=== PATIENT | male | born 1975 | race Caucasian/White ===

== ENCOUNTER 2016-05-28 08:05 | Inpatient (IN) | payer MEDICAID, MEDICARE, OTHER ==
[~2016-05-28] VITALS: Ht 190.5 cm; Wt 101.6 kg
[~2016-05-28 08:05] MED LIST: ASPIRIN81 M1 PO; ATIVAN1 MG PO; AUGMENTIN 875 M1 TAB PO; AUGMENTIN 875/11 TAB GT; CLEOCIN HCL300 MG PO; COLACE100 M1 PO; GLUCOPHAGE500 MG PO; HUMALOG100 UNITS/ SUBQ; HYDROCODONE BIT1 T55 PO; KEFLEX250 MG PO; LANTUS SOLOS100 U/ML SUBQ; LASIX20 MG PO; LEVEMIR100 U/M1 SC; LIPITOR10 MG PO; LIPITOR20 MG PO; LORAZEPAM1 M1 PO; LOTENSIN5 MG PO; METFORMIN1000 MG; NEURONTIN300 MG PO; NORCO 5/325 MG1 TAB PO; NOVOLOG100 U/ML SUBQ; PROAIR HFA0.09 MG/Ac IH; PROZAC10 M1; PROZAC20 MG PO; SMZ TMP DS PO
[2016-05-28 08:44] VITALS: BP 146/68
[2016-05-28] MEDS ORDERED: PREDNISONE20 MG PO (08:59)
[2016-05-28] MEDS ORDERED: LIPITOR10 MG PO (08:59)
[2016-05-28] MEDS ORDERED: VENTOLIN H0.09 MG/Ac IH (08:59)
[2016-05-28] MEDS ORDERED: GLUCOPHAGE500 MG PO (08:59)
[2016-05-28] MEDS ORDERED: PROZAC10 MG PO (08:59)
[2016-05-28] MEDS ORDERED: AMOXICILLIN500 MG PO (08:59)
[2016-05-28] MEDS ORDERED: ULTRAM50 MG PO (08:59)
[2016-05-28] MEDS ORDERED: ATIVAN1 MG PO (08:59)
[2016-05-28] MEDS ORDERED: TOPCARE IBUPRO200 MG PO (08:59)
[2016-05-28] MEDS ORDERED: NAPROXEN250 M1 PO (08:59)
--- NOTE | 2016-05-28 09:00 | NUR ---
PT TAKEN TO BED 4
--- NOTE | 2016-05-28 09:02 | NUR ---
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 WAS SEEN AT [facility] ER, SYMPTOMS UNRELIEVED BY ABX AND PAIN MEDICATION. ALSO C/O GENERALIZED RASH. Hx: DM, ASTHMA, HEART MURMUR, ANXIETY/DEPRESSION. PT DENIES N/V/D; SKIN IS PINK/WARM/DRY; AAOX4 WITH EVEN AND STEADY GAIT; LUNGS CLEAR BL; HR EVEN AND REGULAR; PT DENIES ANY FEVER, CP, SOB, OR COUGH AT THIS TIME; PATIENT STATES PAIN OF 10/10 AT THIS TIME; VSS; PATIENT POSITIONED FOR COMFORT; HOB ELEVATED; BEDRAILS UP X2; BED DOWN. ER MD MADE AWARE OF PT STATUS.
--- NOTE | 2016-05-28 09:03 | NUR ---
DR PHELAN EVALUATING AT BEDSIDE
[2016-05-28] MEDS ORDERED: BACTRIM 400 MG-1 TAB PO (09:04)
[2016-05-28] MEDS ORDERED: AMPICILLIN/SULBACTAM 1.5 GM in NACL 0.9% 50 ML IV ONE (09:10)
[2016-05-28] MEDS ORDERED: NACL 0.9% 1,000 ML IV ONE ×2 (09:10→10:10)
[2016-05-28] MEDS ORDERED: AMPICILLIN/SULBACTAM 1.5 GM VIAL ONE (09:17)
[2016-05-28] MEDS ORDERED: INSULIN HUMAN REGULAR 100 UNITS/ML 10 ML VIAL IVP ONE (10:10)
--- NOTE | 2016-05-28 10:55 | NUR ---
GAVE REPORT TO CHRISTIAN NELSON . PT ADMITTED TO TELE 106 B
--- NOTE | 2016-05-28 11:09 | NUR ---
Patient will be admitted to care of DR. MENDOZA. Admited to TELEMETRY. Will go to room 106B. Belongings list completed. Report to CHRISTIAN NELSON.
--- NOTE | 2016-05-28 11:20 | NUR ---
RECEIVED PT FROM ER NURSE, JILL, NO S/S OF DISTRESS, VS STABLE. WITH IV ON LEFT HAND 20G PATENT AND INTACT. WITH RIGHT UPPER ARM CELLULITIS AND OPEN WOUND ON RIGHT GILBERT. DISCUSSED PLAN OF CARE, PT VERBALIZED UNDERSTANDING. CALL LIGHT WIHTIN REACH, WILL CONTINUE TO MONITOR.
[2016-05-28] MEDS: SACCHAROMYCES 250 MG CAP PO SCH ×2 (12:20→20:49)
[2016-05-28] MEDS: NACL 0.9% 1,000 ML IV SCH ×2 (12:25→19:51)
[2016-05-28] MEDS ORDERED: ALBUTEROL HFA MDI 90 MCG/ACTUATION 8 GM INH PRN (12:30)
[2016-05-28] MEDS ORDERED: traMADol 50 MG TAB PO PRN (12:30)
[2016-05-28] MEDS ORDERED: LORazepam 1 MG TAB PO PRN (12:30)
[2016-05-28] MEDS ORDERED: ALBUTEROL 0.083% 2.5 MG/3 ML NEBU INH PRN (12:40)
[2016-05-28] MEDS ORDERED: IBUPROFEN 800 MG TAB PO PRN (12:54)
--- NOTE | 2016-05-28 13:00 | NUR ---
LUNCH SERVED, PT HAS GOOD APPETITE. NO S/S OF DISTRESS, ALL NEEDS MET AT THIS TIME, CALL LIGHT WITHINR EACH, WILL CONTINUE TO MONITOR.
[2016-05-28] MEDS ORDERED: SACCHAROMYCES 250 MG CAP PO SCH (13:04)
[2016-05-28] MEDS: GABAPENTIN 300 MG CAP PO SCH ×2 (13:24→20:50)
[2016-05-28] MEDS: HYDROcodone/APAP 5/325 MG 1 TAB TAB PO PRN ×2 (13:24→19:47)
[2016-05-28 16:00] VITALS: BP 122/80
--- NOTE | 2016-05-28 16:00 | NUR ---
PT ASLEEP BUT EASILY AWAKEN, VS IS STABLE. CALL LIGHT WITHIN REACH, WILL CONTINUE TO MONITOR.
[2016-05-28] MEDS: BLOOD GLUCOSE MONITORING 1 DEV DEV FS SCH ×2 (16:51→21:00)
[2016-05-28] MEDS: INSULIN ASPART SLIDING SCALE 100 UNITS/ML VIAL SUBQ PRN ×2 (16:54→21:01)
[2016-05-28] MEDS: metFORMIN 500 MG TAB PO SCH (17:15)
[2016-05-28] MEDS: AMPICILLIN/SULBACTAM 1.5 GM in NACL 0.9% 50 ML IV SCH (17:15)
[2016-05-28] MEDS ORDERED: ACETAMINOPHEN 325 MG TAB PO PRN (17:55)
[2016-05-28] MEDS ORDERED: DOCUSATE SODIUM 100 MG GELCAP PO PRN (17:55)
[2016-05-28] MEDS ORDERED: ONDANSETRON 4 MG/2 ML VIAL IVP PRN (17:55)
[2016-05-28] MEDS ORDERED: MAG SULF 2000 MG/WATER PREMIX 50 ML IV SCH (18:30)
--- NOTE | 2016-05-28 19:28 | NUR ---
ENDORSED PT TO CHRISTIAN AU FOR CONTINUITY OF CARE. PT IS STABLE AT THIS TIME.
--- NOTE | 2016-05-28 19:30 | NUR ---
RECEIVED REPORT FROM CEE GONZALES AT BEDSIDE. PT IS ALERT AWAKE ORIENTED X4. INITIAL ASSESSMENT DONE. NO S/S OF RESPIRATORY DISTRESS OR SOB NOTED. C/O RIGHT ARM PAIN SCALING 6/10. WILL GIVE PRN MEDICATION ORDERED. PLAN OF CARE REVIEWED TO PT AND VERBALIZED UNDERSTANDING. CALL LIGHT WITHIN REACH. WILL CONTINUE TO MONITOR.
[2016-05-28 20:00] VITALS: BP 126/82
[2016-05-28] MEDS: ATORVASTATIN 20 MG TAB PO SCH (20:49)
[2016-05-28] MEDS: INSULIN DETEMIR 100 UNITS/ML 10 ML VIAL SUBQ SCH (23:09)
[2016-05-29] VITALS: BP 119/79
--- NOTE | 2016-05-29 00:15 | NUR ---
PT IS SLEEPING RIGHT NOW BUT EASILY AROUSABLE. NO S/S OF ANY DISCOMFORT AT THIS TIME. ALL NEEDS ARE ATTENDED. CALL LIGHT WITHIN REACH. WILL CONTINUE TO MONITOR.
[2016-05-29] MEDS: HYDROcodone/APAP 5/325 MG 1 TAB TAB PO PRN ×3 (01:31→20:07)
[2016-05-29] MEDS: AMPICILLIN/SULBACTAM 1.5 GM in NACL 0.9% 50 ML IV SCH ×3 (03:19→17:23)
[2016-05-29] MEDS: NACL 0.9% 1,000 ML IV SCH ×4 (03:19→19:49)
[2016-05-29 04:00] VITALS: BP 115/78
[2016-05-29] MEDS: GABAPENTIN 300 MG CAP PO SCH ×3 (04:12→20:07)
--- NOTE | 2016-05-29 05:15 | NUR ---
AM CARE RENDERED. BED LINEN CHANGED. INSTRUCTED PT TO REPOSITION. KEPT CLEAN AND DRY. CALL LIGHT WITHIN REACH. WILL CONTINUE TO MONITOR.
[2016-05-29] MEDS: BLOOD GLUCOSE MONITORING 1 DEV DEV FS SCH ×4 (06:33→20:42)
[2016-05-29] MEDS: INSULIN ASPART SLIDING SCALE 100 UNITS/ML VIAL SUBQ PRN ×4 (06:35→20:09)
--- NOTE | 2016-05-29 07:19 | NUR ---
PATIENT HAS BEEN SCREENED AND CATEGORIZED HIGH NUTRITION RISK. PATIENT WILL BE SEEN WITHIN 1-2 DAYS OF ADMISSION. 05/29/16-05/30/16 LILIA CLEMONS MS, RDN
--- NOTE | 2016-05-29 07:19 | NUR ---
PT HAS NO S/S OF ANY DISCOMFORT. PLAN OF CARE ENDORSED TO COLEMAN GONZALES AT BEDSIDE FOR CONTINUITY OF CARE. Addendum: 05/29/16 at 0720 by Yonathan Metzger RN ENDORSED TO PANTERA RIOJAS RN
--- NOTE | 2016-05-29 07:30 | NUR ---
RECEIVED ON BED AWAKE. AAOX4. NO SOB NOTED. NO C/O PAIN AT THIS TIME. IV TO LEFT HAND PATENT AND INTACT. CHEST CLEAR. ABDOMEN SOFT, BOWEL SOUNDS PRESENT. RIGHT HAND CELLULITIS NOTED, CLOSED WOUND, NO DRAINAGE NOTED, LEFT OPEN TO AIR. INSTRUCTED TO ELEVATE RIGHT HAND WITH PILLOW. INSTRUCTED PT TO CALL FOR ASSISTANCE, CALL LIGHT WITHIN REACH. PT VERBALIZED UNDERSTANDING.
[2016-05-29 08:00] VITALS: BP 125/77
[2016-05-29] MEDS: metFORMIN 500 MG TAB PO SCH ×3 (08:59→17:22)
[2016-05-29] MEDS ORDERED: predniSONE 20 MG TAB PO SCH (09:00)
[2016-05-29] MEDS: predniSONE 40 MG, predniSONE 10 MG PO SCH (09:05)
[2016-05-29] MEDS: FUROSEMIDE 20 MG TAB PO SCH (09:06)
[2016-05-29] MEDS: FLUoxetine 20 MG CAP PO SCH (09:06)
[2016-05-29] MEDS: SACCHAROMYCES 250 MG CAP PO SCH ×2 (09:07→20:07)
[2016-05-29] MEDS: INSULIN DETEMIR 100 UNITS/ML 10 ML VIAL SUBQ SCH (09:09)
[2016-05-29] MEDS: MORPHINE SULFATE 2 MG/ML SYR IVP PRN ×2 (09:10→17:25)
--- NOTE | 2016-05-29 09:18 | NUR ---
05/29/2016 RD INITIAL ASSESSMENT COMPLETED PLEASE REFER TO NUTRITION ASSESSMENT UNDER CARE ACTIVITY FOR ESTIMATED NUTRITIONAL NEEDS. RD RECOMMENDATIONS: 1. CONTINUE ON CCHO 60 GM DIET MEDICALLY APPROPRIATE AND TOLERATED BY PT. PT REPORTS IMPROVED PO INTAKES SINCE ADMISSION. 2. MONSEN PROVIDED DM DIET EDUCATION TO PT, LEFT HANDOUTS WITH PT. 3. RD WILL F/U 3-5 DAYS; MODERATE RISK. LILIA CLEMONS MS, RDN Addendum: 05/29/16 at [address] RD WILL F/U 5-7 DAYS; LOW RISK.
[2016-05-29 12:00] VITALS: BP 149/96
--- NOTE | 2016-05-29 12:20 | NUR ---
PT CONSUMED 100% OF LUNCH SERVED. FOOD TOLERATED WELL.
[2016-05-29 16:00] VITALS: BP 112/75
--- NOTE | 2016-05-29 16:33 | NUR ---
PT SEEN BY DR. MEMBRENO (PSYCH) WITH NEW ORDERS.
--- NOTE | 2016-05-29 18:50 | NUR ---
SPOKE WITH DR. GRIFFIN OVER THE PHONE. MADE AWARE OF THE CONSULT AND STATED TO SEE PT ON TUESDAY.
--- NOTE | 2016-05-29 18:53 | NUR ---
PT AWAKE, WATCHING TV. NO SOB NOTED. NO C/O PAIN AT THIS TIME. WILL ENDORSE TO NEXT SHIFT NURSE FOR CONTINUITY OF CARE.
--- NOTE | 2016-05-29 19:15 | NUR ---
RECEIVED PT AWAKE WATCHING TV, WITH RT ARM PAIN 6/10, WILL MEDICATE PRN, VITAL SIGNS STABLE, NO SOB NOTED, RT ARM DRESSING DRY AND INTACT, ELEVATED WITH PILLOW, IVF INFUSING WELL, POC DISCUSSED, CALL LIGHT WITHIN REACH.
[2016-05-29 20:00] VITALS: BP 111/73
[2016-05-29] MEDS: ATORVASTATIN 20 MG TAB PO SCH (20:07)
--- NOTE | 2016-05-29 20:20 | NUR ---
BLOOD SUGAR CHECKED WITH 302 RESULT, COVERAGE GIVEN, SNACK PROVIDED, DUE PO MEDICATIONS GIVEN WITH EDUCATION AND MEDICATED PRN FOR PAIN WITH NORCO, ALL NEEDS ATTENDED.
[2016-05-29] MEDS ORDERED: GABAPENTIN 100 MG CAP PO SCH (21:00)
[2016-05-30] VITALS: BP 118/76
--- NOTE | 2016-05-30 | NUR ---
ASLEEP, EASILY AROUSABLE, VITAL SIGNS STABLE, DENIES ANY PAIN, RT HAND DRESSING DRY AND INTACT, IVF INFUSING WELL, CONTINUE TO MONITOR CLOSELY.
[2016-05-30] MEDS: NACL 0.9% 1,000 ML IV SCH ×5 (00:10→21:37)
[2016-05-30] MEDS: AMPICILLIN/SULBACTAM 1.5 GM in NACL 0.9% 50 ML IV SCH ×3 (01:26→18:29)
[2016-05-30 04:00] VITALS: BP 123/86
[2016-05-30] MEDS: MORPHINE SULFATE 2 MG/ML SYR IVP PRN ×3 (04:29→18:29)
[2016-05-30] MEDS: GABAPENTIN 300 MG CAP PO SCH ×3 (04:29→20:14)
--- NOTE | 2016-05-30 04:30 | NUR ---
PT REMOVED RT HAND DRESSING, MINIMAL PURULENT DRAINAGE NOTED TO SITE, CLEANSE WITH NS THEN COVERED WITH COMPOSITE DRESSING, MEDICATED PRN FOR PAIN, MONITORED CLOSELY.
--- NOTE | 2016-05-30 06:00 | NUR ---
AM LABS DRAWN, BLOOD SUGAR CHECKED WITH 166 RESULT, COVERAGE GIVEN, RT HAND DRESSING DRY AND INTACT, IVF INFUSING WELL, MONITORED CLOSELY.
[2016-05-30] MEDS: INSULIN ASPART SLIDING SCALE 100 UNITS/ML VIAL SUBQ PRN ×4 (06:02→20:18)
[2016-05-30] MEDS: BLOOD GLUCOSE MONITORING 1 DEV DEV FS SCH ×4 (06:41→21:04)
--- NOTE | 2016-05-30 07:15 | NUR ---
PT SLEEPING, NO SIGNS OF DISTRESS, REPORT GIVEN TO CHRISTIAN LUKE FOR CONTINUITY OF CARE.
--- NOTE | 2016-05-30 07:16 | NUR ---
RECEIVED REPORT FROM FURNACE FEEDER RN. PT AWAKE, A/O X 4, AMBULATORY. NO S/S OF ACUTE CARDIAC/RESPIRATORY DISTRESS OR DISCOMFORT. L HAND 20G INTACT AND PATENT. RUE CELLULITIS DRESSING INTACT. SAFETY MEASURES IN PLACE, CALL LIGHT WITHIN REACH. WILL CONTINUE PLAN OF CARE AND CONTINUE TO MONITOR.
[2016-05-30 08:00] VITALS: BP 131/90
[2016-05-30] MEDS: FLUoxetine 20 MG CAP PO SCH (08:42)
[2016-05-30] MEDS: FUROSEMIDE 20 MG TAB PO SCH (08:42)
[2016-05-30] MEDS: metFORMIN 500 MG TAB PO SCH ×3 (08:42→16:50)
[2016-05-30] MEDS: HYDROcodone/APAP 5/325 MG 1 TAB TAB PO PRN ×2 (08:43→13:56)
[2016-05-30] MEDS: predniSONE 40 MG, predniSONE 10 MG PO SCH (08:43)
[2016-05-30] MEDS: INSULIN DETEMIR 100 UNITS/ML 10 ML VIAL SUBQ SCH (08:45)
[2016-05-30] MEDS: SACCHAROMYCES 250 MG CAP PO SCH ×2 (08:46→20:15)
--- NOTE | 2016-05-30 10:30 | NUR ---
WOUND CARE DONE BY . DRESSING CHANGED. MEDICATED PT WITH MORPHINE. PT TOLERATED WOUND CARE WELL. NO S/S OF DISTRESS. CALL LIGHT WITHIN REACH. WILL CONTINUE TO MONITOR.
[2016-05-30] MEDS ORDERED: LORazepam 2 MG/ML VIAL IVP PRN (11:00)
[2016-05-30] MEDS ORDERED: FLUoxetine 20 MG CAP PO SCH (11:05)
[2016-05-30 12:00] VITALS: BP 143/87
[2016-05-30] MEDS ORDERED: POTASSIUM CHLORIDE 40 MEQ, LIDOCAINE 1% 25 MG in NACL 0.9% 250 ML IV SCH (12:00)
--- NOTE | 2016-05-30 13:17 | NUR ---
PT IS RESTING WITH EYES CLOSED. NO S/S OF ACUTE DISTRESS OR DISCOMFORT. CALL LIGHT WITHIN REACH. WILL CONTINUE TO MONITOR.
--- NOTE | 2016-05-30 15:16 | NUR ---
PT IS SLEEPING. NO S/S OF ACUTE DISTRESS OR DISCOMFORT. CALL LIGHT WITHIN REACH. WILL CONTINUE TO MONITOR.
[2016-05-30 16:00] VITALS: BP 129/73
[2016-05-30] MEDS ORDERED: MAG SULF 2000 MG/WATER PREMIX 50 ML IV SCH (16:00)
--- NOTE | 2016-05-30 17:13 | NUR ---
PT IS SLEEPING. NO S/S OF ACUTE DISTRESS OR DISCOMFORT. CALL LIGHT WITHIN REACH. WILL CONTINUE TO MONITOR.
--- NOTE | 2016-05-30 19:03 | NUR ---
ENDORSED REPORT TO LOCKSMITH CHRISTIAN PAPPAS. PT IS SLEEPING. NO S/S OF ACUTE DISTRESS OR DISCOMFORT. PT IN STABLE CONDITION. CALL LIGHT WITHIN REACH.
--- NOTE | 2016-05-30 19:15 | NUR ---
RECEIVED PT SLEEPING, EASILY AROUSABLE, VITAL SIGNS STABLE, DENIES ANY PAIN, NO SOB NOTED, DRESSING TO RT HAND/WRIST DRY AND INTACT, IVF INFUSING WELL, POC DISCUSSED, CALL LIGHT WITHIN REACH.
[2016-05-30 20:00] VITALS: BP 113/73
[2016-05-30] MEDS: ATORVASTATIN 20 MG TAB PO SCH (20:14)
--- NOTE | 2016-05-30 21:10 | NUR ---
BLOOD SUGAR CHECKED WITH 250 RESULT, COVERAGE GIVEN, SNACK PROVIDED, DUE PO MEDICATION ADMINISTERED, ALL NEEDS ATTENDED.
--- NOTE | 2016-05-30 23:40 | NUR ---
PT SLEEPING, EASILY AROUSABLE, VITAL SIGNS STABLE, DENIES ANY PAIN, IVF INFUSING WELL, RT HAND DRESSING DRY AND INTACT, CONTINUE TO MONITOR CLOSELY.
[2016-05-31] VITALS: BP 110/73
[2016-05-31] MEDS: AMPICILLIN/SULBACTAM 1.5 GM in NACL 0.9% 50 ML IV SCH ×3 (01:10→17:01)
[2016-05-31] MEDS: NACL 0.9% 1,000 ML IV SCH ×3 (01:14→19:31)
[2016-05-31] MEDS: MORPHINE SULFATE 2 MG/ML SYR IVP PRN ×3 (03:18→16:12)
--- NOTE | 2016-05-31 03:37 | NUR ---
PT AMBULATED TO BR, BM WITH LARGE SOFT STOOL, BED LINEN CHANGED, VITAL SIGNS STABLE, MEDICATED PRN FOR PAIN, MONITORED CLOSELY.
[2016-05-31 04:00] VITALS: BP 117/86
[2016-05-31] MEDS: GABAPENTIN 300 MG CAP PO SCH ×3 (04:40→21:08)
[2016-05-31] MEDS: INSULIN ASPART SLIDING SCALE 100 UNITS/ML VIAL SUBQ PRN ×4 (06:13→21:10)
--- NOTE | 2016-05-31 06:15 | NUR ---
BLOOD SUGAR CHECKED WITH 192 RESULT, COVERAGE GIVEN, RT HAND DRESSING DRY AND INTACT, IVF INFUSING WELL, MONITORED CLOSELY.
[2016-05-31] MEDS: BLOOD GLUCOSE MONITORING 1 DEV DEV FS SCH ×4 (07:04→21:04)
--- NOTE | 2016-05-31 07:15 | NUR ---
PT SLEEPING, NO SIGNS OF DISTRESS, REPORT GIVEN TO LESLIE GONZALES FOR CONTINUITY OF CARE.
--- NOTE | 2016-05-31 07:16 | NUR ---
PT RECEIVED FROM CHRISTIAN PAPPAS ASLEEP BUT EASILY AWAKEN. AAOX4, WITH IV ACCESS ON LEFT HAND 20G INFUSING FLUIDS WELL. WITH WOUND DRESSING AT RIGHT HAND DRY AND INTACT. NO COMPLAINTS OF PAIN AT THIS TIME. NO S/S OF RESPIRATORY DISCOMFORT. DISCUSSED PLAN OF CARE, PT VERBALIZED UNDERSTANDING. CALL LIGHT WITHIN REACH, WILL CONTINUE TO MONITOR.
[2016-05-31 08:00] VITALS: BP 116/79
[2016-05-31] MEDS: metFORMIN 500 MG TAB PO SCH ×3 (08:17→16:07)
[2016-05-31] MEDS: SACCHAROMYCES 250 MG CAP PO SCH ×2 (08:17→21:08)
[2016-05-31] MEDS: FLUoxetine 20 MG CAP PO SCH (08:17)
[2016-05-31] MEDS: FUROSEMIDE 20 MG TAB PO SCH (08:17)
[2016-05-31] MEDS: predniSONE 40 MG, predniSONE 10 MG PO SCH (08:17)
[2016-05-31] MEDS: INSULIN DETEMIR 100 UNITS/ML 10 ML VIAL SUBQ SCH (08:24)
--- NOTE | 2016-05-31 08:25 | NUR ---
DUE MEDS GIVEN, PT TOLERATED WELL. ALL NEEDS MET AT THIS TIME. CALL LIGHT WITHIN REACH, WILL CONTINUE TO MONITOR.
--- NOTE | 2016-05-31 08:50 | NUR ---
WOUND CARE EVALUATION NOTES: REASON FOR EVALUATION: RIGHT WRIST CELLULITIS, OPEN WOUND RIGHT CALF COMPLETE SKIN ASSESSMENT DONE ON THIS 41 Y/O MALE PATIENT FROM HOME TO [facility], WITH INITIAL DIAGNOSIS OF RUE CELLULITIS AND UNCONTROLLED DIABETES. PAST MEDICAL HISTORY INCLUDE DM AND HYPERTENSION. ALL ABOVE INFORMATION WAS OBTAINED FROM THE ADMISSION H&P. LABS ARE WBC 9.7, H/H 13.9/42.3, GLUCOSE 190, ALBUMIN 1.9, PT/INR 9.4/1.0 AND PTT 26.5. CURRENT MEDS INCLUDE PREDNISONE, UNASYN, INSULIN, METFORMIN AND IBUPROFEN. PATIENT IS AWAKE, ALERT AND ORIENTED TO PERSON, PLACE AND TIME. SKIN WARM TO TOUCH WNL, TOENAILS WNL, WITH HAIR GROWTH, NO EDEMA AND +2 BILATERAL PEDAL PULSES. URINE AND BOWEL CONTINENT, ABLE TO AMBULATE TO THE RESTROOM CLAIMED. ABLE TO MAKE HIS NEEDS KNOWN. ABLE TO TURN SELF WITH NO ASSISTANCE. INITIAL PLAN OF CARE AND PRESSURE PREVENTIVE MEASURES DISCUSSED, ABLE TO VERBALIZE UNDERSTANDING. INTEGUMENTARY: RIGHT WRIST - CELLULITIS - S/P BEDSIDE I&D 05/30/16 - 100% DUSKY RED. PW DRY WITH SKIN PEELING OFF. DR. STRICKLAND AT BEDSIDE CHANGING THE DRESSING. BLE - MULTIPLE ABRASIONS - 100% BROWN RED SCABS. PATIENT CLAIMED THAT HE HAD BEEN SCRATCHING THE AREA. PW DISCOLORED. RECOMMENDATIONS: -CLEANSE RIGHT WRIST WITH NS AND GAUZE, PAT DRY, PACK WITH 1/4 INCH IODOFORM PACKING, COVER WITH GAUZE AND WRAP WITH MERT Q DAY AND PRN WITH SOILING/DISPLACEMENT. -TURN AND REPOSITION PATIENT Q2H -ASSESS AND MONITOR SKIN CONDITION DURING POSITION CHANGE, PLEASE PAY PARTICULAR ATTENTION TO SACRALCOCCYX, ELBOWS AND HEELS -OFFLOAD BILATERAL HEELS BY PLACING PILLOWS UNDER CALVES AT ALL TIMES, UNLESS OTHERWISE CONTRAINDICATED -KEEP SKIN CLEAN AND DRY AT ALL TIMES. RECOMMENDATIONS DISCUSSED WITH PRIMARY RN AND RESIDENT PHYSICIAN, DR STRICKLAND AND DR. STOCK. WILL FOLLOW UP PATIENT Q 7 DAYS AND PRN. PLEASE CONTACT [facility] FOR ANY CONCERNS, QUESTIONS AND CHANGES IN WOUND CONDITION.
--- NOTE | 2016-05-31 09:05 | NUR ---
DEBRIDEMENT DONE BY DR. STRICKLAND. COVERED WITH DRY DRESSING. PT TOLERATED WELL.
[2016-05-31 12:00] VITALS: BP 130/68
--- NOTE | 2016-05-31 12:01 | NUR ---
SS NOTE: I SPOKE WITH PT BEDSIDE AND PROVIDED HIM WITH OUTPT MENTAL HEALTH RESOURCES.
--- NOTE | 2016-05-31 12:30 | NUR ---
DR GRIFFIN IN THE ROOM WITH THE PT, NO COMPLAINTS AT THIS TIME, ALL NEEDS MET. WILL CONTINUE TO MONITOR.
[2016-05-31] MEDS: HYDROcodone/APAP 5/325 MG 1 TAB TAB PO PRN (13:46)
--- NOTE | 2016-05-31 14:56 | NUR ---
PT AWAKE SITTING ON BED WATCHING TV, NO COMPLAINTS OR DISTRESS AT THIS TIME. CALL LIGHT WITHIN REACH, WILL CONTINUE TO MONITOR.
--- NOTE | 2016-05-31 15:54 | NUR ---
PT COMPLAINS OF NUMBNESS ON RIGHT HAND, DR STOCK INFORMED. ENCOURAGED PT TO ELEVATE HAND, PT VERBALIZED UNDERSTANDING
[2016-05-31] MEDS ORDERED: GABAPENTIN 100 MG CAP PO PRN (15:55)
[2016-05-31 16:00] VITALS: BP 124/84
--- NOTE | 2016-05-31 17:10 | NUR ---
PT AWAKE WATCHING TV, ALL NEEDS MET AT THIS TIME. CALL LIGHT WITHIN REACH, WILL CONTINUE TO MONITOR.
--- NOTE | 2016-05-31 19:28 | NUR ---
ENDORSED PT TO Dung NEWMAN RN FOR CONTINUITY OF CARE IN STABLE CONDITION
--- NOTE | 2016-05-31 19:40 | NUR ---
RECEIVED REPORT FROM DAY NURSELESLIE. PATIENT RESTING IN BED, WATCHING TELEVISION. NO RESPIRATORY DISTRESS, SOB, OR DISCOMFORT. INITIAL ASSESSMENT AND BODY CHECK DONE. PATIENT IS AOX4, WOUND NOTED TO RUE COVERED WITH DRESSING; DRY & INTACT. PATIENT IS S/P I&D (05/31/16) TO RUE. ABRASION NOTED TO RLE. IV ACCESS TO LEFT HAND 20G, PATENT. DISCUSSED PLAN OF CARE, MEDICATION REGIMENT, AND PAIN MANAGEMENT WITH PATIENT. PATIENT VERBALIZED UNDERSTANDING. PLACED PATIENT ON SAFETY PRECAUTIONS. CALL LIGHT LEFT WITHIN REACH, WILL CONTINUE TO MONITOR.
[2016-05-31 20:00] VITALS: BP 105/63
[2016-05-31] MEDS: ATORVASTATIN 20 MG TAB PO SCH (21:08)
--- NOTE | 2016-05-31 22:10 | NUR ---
PATIENT IN BED, SLEEPING. NO RESPIRATORY DISTRESS, SOB, OR DISCOMFORT. CALL LIGHT LEFT WITHIN REACH, WILL CONTINUE TO MONITOR.
[2016-06-01] VITALS: BP 116/75
--- NOTE | 2016-06-01 00:50 | NUR ---
PATIENT ASLEEP. NO RESPIRATORY DISTRESS, SOB, OR DISCOMFORT. CALL LIGHT LEFT WITHIN REACH, WILL CONTINUE TO MONITOR.
[2016-06-01] MEDS: NACL 0.9% 1,000 ML IV SCH ×2 (02:13→09:44)
[2016-06-01] MEDS: AMPICILLIN/SULBACTAM 1.5 GM in NACL 0.9% 50 ML IV SCH ×2 (02:38→10:10)
--- NOTE | 2016-06-01 03:07 | NUR ---
PATIENT SLEEPING. NO RESPIRATORY DISTRESS, SOB, OR DISCOMFORT. CALL LIGHT LEFT WITHIN REACH, WILL CONTINUE TO MONITOR.
[2016-06-01 04:00] VITALS: BP 108/69
[2016-06-01] MEDS: GABAPENTIN 300 MG CAP PO SCH ×2 (06:03→12:43)
--- NOTE | 2016-06-01 06:03 | NUR ---
PATIENT IN BED, ASLEEP. NO RESPIRATORY DISTRESS, SOB, OR DISCOMFORT. CALL LIGHT LEFT WITHIN REACH, WILL CONTINUE TO MONITOR.
[2016-06-01] MEDS: INSULIN ASPART SLIDING SCALE 100 UNITS/ML VIAL SUBQ PRN ×2 (06:28→12:46)
[2016-06-01] MEDS: BLOOD GLUCOSE MONITORING 1 DEV DEV FS SCH ×2 (06:28→11:30)
--- NOTE | 2016-06-01 07:05 | NUR ---
REPORT GIVEN TO DAY NURSELESLIE. PATIENT RESTING IN BED, WATCHING TELEVISION. NO RESPIRATORY DISTRESS, SOB, OR DISCOMFORT. ALL NEEDS ATTENDED TO DURING SHIFT, CALL LIGHT LEFT WITHIN REACH.
--- NOTE | 2016-06-01 07:11 | NUR ---
RECEIVED PT FROM TRENT Kee RN AWAKE WHILE LYING ON BED, AAOX4 WITH IV ON LEFT WRIST 22G INFUSING FLUIDS WELL. WITH RUE CELLULITIS WITH DRESSING DRY AND INTACT. DISCUSSED PLAN OF CARE, PT VERBALIZED UNDERSTANDING. CALL LIGHT WITHIN REACH, WILL CONTINUE TO MONITOR.
[2016-06-01 08:00] VITALS: BP 112/84
[2016-06-01] MEDS: SACCHAROMYCES 250 MG CAP PO SCH (08:18)
[2016-06-01] MEDS: metFORMIN 500 MG TAB PO SCH ×2 (08:18→12:43)
[2016-06-01] MEDS: FLUoxetine 20 MG CAP PO SCH (08:18)
[2016-06-01] MEDS: predniSONE 40 MG, predniSONE 10 MG PO SCH (08:19)
[2016-06-01] MEDS: MORPHINE SULFATE 2 MG/ML SYR IVP PRN (08:19)
[2016-06-01] MEDS: FUROSEMIDE 20 MG TAB PO SCH (08:19)
[2016-06-01] MEDS: INSULIN DETEMIR 100 UNITS/ML 10 ML VIAL SUBQ SCH (08:26)
--- NOTE | 2016-06-01 08:30 | NUR ---
DUE MEDS GIVEN. PT TOLERATED WELL. ALL NEEDS MET AT THIS TIME, CALL LIGHT VINOD WILSON, WILL CONTINUE TO MONITOR.
[2016-06-01] MEDS ORDERED: LEVEMIR100 U/ML SUBQ (11:01)
[2016-06-01] MEDS ORDERED: NOVOLOG100 UNIT/1 SUBQ (11:01)
[2016-06-01] MEDS ORDERED: FLORASTOR 33 MG1 CAP PO (11:01)
[2016-06-01] MEDS ORDERED: AUGMENTIN 500 M1 TAB PO (11:01)
--- NOTE | 2016-06-01 11:02 | NUR ---
FAXED CONCURRENT REVIEW TO [facility] [phone] PHONE [phone] FAXED REVIEW TO [facility] [phone] PHONE [phone]
[2016-06-01 11:12] VITALS: BP 112/84
[2016-06-01] MEDS ORDERED: LANTUS SOLOS100 U/ML SUBQ (11:38)
[2016-06-01] MEDS ORDERED: HUMALOG100 UNITS/ SUBQ (11:40)
[2016-06-01 12:00] VITALS: BP 130/81
[2016-06-01] MEDS ORDERED: GAUZE TP SCH (13:59)
--- NOTE | 2016-06-01 14:27 | NUR ---
DISCHARGE INSTRUCTIONS GIVEN, PT VERBALIZED UNDERSTANDING. PT GIVEN SUPPLIES FOR WOUND CARE. ID WRISTBAND, TELE AND IV ACCESS REMOVED, CATHETER TIP INTACT. NO S/S OF DISTRESS. PT GIVEN HOME MEDS FROM PHARMACY. PT LEFT UNIT AMBULATING IN STABLE CONDITION,
[2016-10-08] MEDS ORDERED: NEURONTIN300 M1 PO (09:09)
[2016-10-08] MEDS ORDERED: ASPIRIN ADULT L81 M1 PO (09:09)
[2016-10-14] MEDS ORDERED: BACTRIM DS 8001 TA1 PO (10:37)
[2016-10-14] MEDS ORDERED: NORCO 5/325 MG1 TAB PO (10:38)
[2016-10-14] MEDS ORDERED: COLACE100 M1 PO (10:39)
== END 2016-06-01 14:00 | disposition home or self-care (01) | DRG 364 ==
LOC: MED 08:05 → MTU 10:43
PROVIDERS: ADMIT Family Medicine; ATTEND Family Medicine
PROC: 0J9G0ZZ Drainage of Right Lower Arm Subcutaneous Tissue and Fascia, Open Approach (ICD-10-PCS; principal; 2016-05-30)
DX: L03.113 Cellulitis of right upper limb (principal); N17.0 Acute kidney failure with tubular necrosis; E43 Unspecified severe protein-calorie malnutrition; E11.42 Type 2 diabetes mellitus with diabetic polyneuropathy; D68.69 Other thrombophilia; F33.3 Major depressive disorder, recurrent, severe with psychotic symptoms; E87.8 Other disorders of electrolyte and fluid balance, not elsewhere classified; E11.65 Type 2 diabetes mellitus with hyperglycemia; E87.1 Hypo-osmolality and hyponatremia; E83.51 Hypocalcemia; E87.6 Hypokalemia; E83.42 Hypomagnesemia; E83.39 Other disorders of phosphorus metabolism; E78.5 Hyperlipidemia, unspecified; F12.10 Cannabis abuse, uncomplicated; F15.10 Other stimulant abuse, uncomplicated; F79 Unspecified intellectual disabilities; I10 Essential (primary) hypertension; G90.9 Disorder of the autonomic nervous system, unspecified; F41.1 Generalized anxiety disorder; F42.4 Excoriation (skin-picking) disorder; J45.909 Unspecified asthma, uncomplicated; L02.413 Cutaneous abscess of right upper limb; Z79.899 Other long term (current) drug therapy; Z88.1 Allergy status to other antibiotic agents; Z68.28 Body mass index [BMI] 28.0-28.9, adult; Z83.3 Family history of diabetes mellitus

== ENCOUNTER 2016-10-08 08:33 | Inpatient (IN) | payer MEDICAID, MEDICARE ==
[~2016-10-08] VITALS: Ht 185.4 cm; Wt 90.3 kg
[~2016-10-08 08:33] MED LIST changes: +ACET-3820 PO; +ALBU-136 IH; +ALBU0.0912 IH; +AMOX-999 PO; -ASPIRIN81 M1 PO; -ATIVAN1 MG PO; +ATOR10TA PO; -AUGMENTIN 875 M1 TAB PO; -AUGMENTIN 875/11 TAB GT; -CLEOCIN HCL300 MG PO; -COLACE100 M1 PO; +FLUO10CA21 PO; +FURO-572 PO; +GABA300C PO; -GLUCOPHAGE500 MG PO; +HUM SUBQ; -HUMALOG100 UNITS/ SUBQ; -HYDROCODONE BIT1 T55 PO; +INSU100S22 SUBQ; -KEFLEX250 MG PO; -LANTUS SOLOS100 U/ML SUBQ; -LASIX20 MG PO; -LEVEMIR100 U/M1 SC; -LIPITOR10 MG PO; -LIPITOR20 MG PO; +LORA-476 PO; -LORAZEPAM1 M1 PO; -LOTENSIN5 MG PO; +METF500T PO; -METFORMIN1000 MG; -NEURONTIN300 MG PO; -NORCO 5/325 MG1 TAB PO; -NOVOLOG100 U/ML SUBQ; +PRED20TA5 PO; -PROAIR HFA0.09 MG/Ac IH; -PROZAC10 M1; -PROZAC20 MG PO; +SACC250C1 PO; -SMZ TMP DS PO; +TRAM50TA94 PO; +[UNRECOGNIZED DRUG - CODE] PO; +[UNRECOGNIZED DRUG - CODE] PO
[2016-10-08 08:40] VITALS: BP 132/95
--- NOTE | 2016-10-08 08:47 | NUR ---
PATIENT AMBULATED TO BED 5 AT THIS TIME.
--- NOTE | 2016-10-08 08:48 | NUR ---
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 ALSO C/O SORE THROAT & CHEST PAIN WHEN COUGHING X 1 MO. HX OF ASTHMA, DM, ANXIETY, BIPOLAR, SCHIZOPHRENIA . DENIES N/V/D. AAOX4 WITH EVEN AND STEADY GAIT; LUNGS CLEAR BL; HR EVEN AND REGULAR; PT DENIES ANY FEVER, CP, SOB, OR COUGH AT THIS TIME; PATIENT STATES PAIN OF 10/10 AT THIS TIME; VSS; PATIENT POSITIONED FOR COMFORT; HOB ELEVATED; BEDRAILS UP X2; BED DOWN. ER MADE AWARE OF PT STATUS. Addendum: 10/08/16 at 0954 by [facility] ABRASION
--- NOTE | 2016-10-08 09:00 | NUR ---
ER DR HARMON EVALUATING PT AT BEDSIDE.
[2016-10-08] MEDS ORDERED: NACL 0.9% 500 ML IV SCH (09:02)
[2016-10-08] MEDS ORDERED: ASPIRIN 81 MG TAB.CHEW PO ONE (09:05)
[2016-10-08] MEDS ORDERED: AMPICILLIN/SULBACTAM 3 GM in NACL 0.9% MINI-BAG PLUS 100 ML IV ONE (09:05)
[2016-10-08] MEDS ORDERED: GABA300C1 PO (09:09)
[2016-10-08] MEDS ORDERED: ASPI81CT27 PO (09:09)
[2016-10-08] MEDS ORDERED: DOCUSATE SODIUM 100 MG GELCAP PO PRN (09:10)
[2016-10-08] MEDS ORDERED: ONDANSETRON 4 MG/2 ML VIAL IM/IVP PRN (09:10)
[2016-10-08] MEDS ORDERED: ACETAMINOPHEN 325 MG TAB PO PRN (09:10)
[2016-10-08] MEDS ORDERED: AMPICILLIN/SULBACTAM 3 GM VIAL ONE (09:20)
[2016-10-08] MEDS ORDERED: PIPERACILLIN/TAZOBACTAM 3.375 GM in DEXTROSE 5% 50 ML IV ONE (09:20)
--- NOTE | 2016-10-08 09:25 | NUR ---
LAB AT BEDSIDE
[2016-10-08] MEDS ORDERED: PIPER/TAZO 3.375GM/D5W PREMIX 50 ML IV SCH ×2 (09:35→12:00)
--- NOTE | 2016-10-08 09:47 | NUR ---
EKG AT BEDSIDE
[2016-10-08 09:56] LABS: BASOPHILS # (AUTO) 0.1 K/uL (0.00-0.22); BASOPHILS % (AUTO) 1.7 % (0.0-2.0); EOSINOPHILS # (AUTO) 0.1 K/uL (0-0.4); EOSINOPHILS % (AUTO) 1.8 % (0.0-4.0); HEMATOCRIT 42.2 % (36-52); HEMOGLOBIN 13.9 g/dL (12.0-18.0); LYMPHOCYTES # (AUTO) 1.9 K/uL (2.0-11.5); LYMPHOCYTES % (AUTO) 27.3 % (20.5-51.1); MEAN CORPUSCULAR HEMOGLOBIN 27 pg (27-31); MEAN CORPUSCULAR HGB CONC 33 g/dL (33-37); MEAN CORPUSCULAR VOLUME 81 fL (80-94); MONOCYTES # (AUTO) 0.7 K/uL (0.8-1.0); MONOCYTES % (AUTO) 10.8 % (1.7-9.3); NEUTROPHILS # (AUTO) 4.1 K/uL (1.8-7.7); NEUTROPHILS % (AUTO) 58.4 % (42.2-75.2); PLATELET COUNT (AUTO) 206 K/uL (140-450); RED BLOOD CELL COUNT(AUTO) 5.19 MIL/uL (4.20-6.10); RED CELL DISTRIBUTION WIDTH 12.5 % (11.6-13.7); WHITE BLOOD COUNT (AUTO) 6.9 K/uL (4.8-10.8)
[2016-10-08 10:07] LABS: C-REACTIVE PROTEIN QUANT 2.6 mg/dL (0.0-0.9)
--- NOTE | 2016-10-08 10:07 | NUR ---
GAVE REPORT TO CHRISTIAN ROONEY
[2016-10-08 10:09] LABS: ALBUMIN 2.8 g/dL (3.4-5.0); ANION GAP 13.8 (8-16); CALCIUM 8.5 mg/dL (8.5-10.1); CARBON DIOXIDE 26.5 mmol/L (21-32); CREATININE 0.9 mg/dL (0.6-1.3); POTASSIUM 4.3 mmol/L (3.5-5.1); TOTAL BILIRUBIN 0.3 mg/dL (0.0-1.0); TOTAL PROTEIN, SERUM 7.5 g/dL (6.4-8.2)
--- NOTE | 2016-10-08 10:10 | NUR ---
PULSE OX 100%. NO O2 CANULAR GIVEN. Addendum: 10/08/16 at 1011 by [email or web address] Amendment undone in ED - 10/08/16 at 1012 by [email or web address] UA COLLECTION SENT TO LAB
--- NOTE | 2016-10-08 10:10 | NUR ---
WOUND C/S L BIG TOE. TOOK PICTURE WOUND AT L BIG TOE, R ARM.
--- NOTE | 2016-10-08 10:11 | NUR ---
Patient will be admitted to care of [facility]. Admited to TELE. Will go to room 106B. Belongings list completed. Report to CHRISTIAN ROONEY.
[2016-10-08 10:12] LABS: PARTIAL THROMBOPLASTIN TIME 24.5 secs (22-35.6); PROTHROMBIN TIME 9.8 secs (10.8-13.4)
--- NOTE | 2016-10-08 10:13 | NUR ---
UA COLLECTION SENT TO LAB
[2016-10-08 10:19] LABS: LACTIC ACID 3.2 mmol/L (0.4-2.0)
[2016-10-08 10:35] LABS: MAGNESIUM 1.8 mg/dL (1.8-2.4); PHOSPHORUS 4.9 mg/dL (2.5-4.9)
[2016-10-08 10:37] LABS: CHOL/HDL RATIO 5.4 (1-4.5)
--- NOTE | 2016-10-08 10:37 | NUR ---
Florentin feldman in ED - 10/08/16 at 1039 by MED1 WOUND C/S L BIG TOE. TOOK PICTURE WOUND AT L BIG TOE, R ARM.
[2016-10-08 10:38] LABS: FREE T4 (FREE THYROXINE) 1.16 ng/dL (0.76-1.46); THYROID STIMULATING HORMONE 1.79 uIU/mL (0.34-3.76)
--- NOTE | 2016-10-08 10:42 | NUR ---
PT ON UNIT. NO S/S OF ACUTE DISTRESS. PT DENIES PAIN. IV SITE PATENT AND INTACT. WOUND TO RIGHT FOREARM AND LEFT BIG TOE NOTED. AAOX4. PT ORIENTED TO ROOM. FALL RISK PROTOCOL INITIATED. CALL LIGHT WITHIN REACH. SAFETY MEASURES ENSURED. WILL CONTINUE TO MONITOR.
[2016-10-08 11:01] LABS: APPEARANCE,URINE HAZY (CLEAR); BILIRUBIN,URINE NEGATIVE (NEGATIVE); BLOOD, URINE TRACE-I (NEGATIVE); COLOR,URINE YELLOW (YELLOW); LEUKOCYTE ESTERASE ,URINE NEGATIVE (NEGATIVE); NITRITE, URINE NEGATIVE (NEGATIVE); PH,URINE 5.5 (5.0-9.0); PROTEIN,URINE 2+ (NEGATIVE); UGLUCOSE 3+ (NEGATIVE); UROBILINOGEN,URINE 0.2 EU/dL (0.2 - 1)
[2016-10-08 11:19] VITALS: BP 117/90
[2016-10-08 11:28] LABS: ANION GAP 17.5 (8-16); CARBON DIOXIDE 21.8 mmol/L (21-32); POTASSIUM 4.3 mmol/L (3.5-5.1)
[2016-10-08 11:29] LABS: CALCIUM 8.4 mg/dL (8.5-10.1); CREATININE 0.8 mg/dL (0.6-1.3)
[2016-10-08 11:29] LABS: RBC,URINE 0-3 /HPF (0-5)
[2016-10-08 11:30] LABS: BACTERIA,URINE OCCASSIONAL /HPF (None Seen); MUCUS,URINE 1+ /LPF (None Seen); SQUAMOUS EPITHELIAL CELL,UR 0-2 /LPF (0-3 (FEW)); WBC,URINE 0-2 /HPF (0-5)
[2016-10-08] MEDS ORDERED: LORazepam 1 MG TAB PO PRN (11:35)
[2016-10-08] MEDS ORDERED: ASPIRIN 81 MG TAB.CHEW PO SCH (11:38)
[2016-10-08] MEDS ORDERED: FLUoxetine 20 MG CAP PO SCH (11:40)
[2016-10-08] MEDS: FUROSEMIDE 20 MG TAB PO SCH ×2 (11:42→12:39)
[2016-10-08 12:00] VITALS: BP 118/77
[2016-10-08] MEDS: INSULIN LISPRO 100 UNITS/ML VIAL SUBQ SCH ×2 (12:00→17:01)
[2016-10-08] MEDS ORDERED: metFORMIN 500 MG TAB PO SCH (12:00)
[2016-10-08] MEDS: NACL 0.9% 1,000 ML IV SCH ×3 (12:32→23:13)
[2016-10-08] MEDS: GABAPENTIN 300 MG CAP PO SCH ×2 (12:39→21:00)
--- NOTE | 2016-10-08 12:44 | NUR ---
MEDICATIONS ADMINISTERED WITH EDUCATION. PT VERBALIZED UNDERSTANDING. PT TOLERATED WELL. WILL CONTINUE TO MONITOR.
[2016-10-08 12:54] LABS: AMPHETAMINE, URINE NEG. ng/ml (NEG <=1000); BARBITURATE, URINE NEG. ng/ml (NEG <=200); BENZODIAZEPINE, URINE NEG. ng/mL (NEG <=200); CANNABINOID, URINE NEG. ng/mL (NEG <=50); COCAINE, URINE NEG. ng/mL (NEG <=300); OPIATE, URINE POS. ng/mL (NEG <=2000); PHENCYCLIDINE SCREEN,URINE NEG. ng/mL (NEG <=25)
[2016-10-08] MEDS: INSULIN LISPRO SLIDING SCALE 100 UNITS/ML VIAL SUBQ PRN (12:57)
[2016-10-08] MEDS ORDERED: VANCOMYCIN PER PHARMACY MC PRN (13:00)
[2016-10-08] MEDS ORDERED: LACTOBACILLUS RHAMNOSUS GG 1 EACH CAP PO SCH ×2 (13:03→21:00)
--- NOTE | 2016-10-08 13:30 | NUR ---
NOTIFIED DR. SCHROEDER FOR WOUND AND FNS CONSULT.
[2016-10-08] MEDS ORDERED: VANCOMYCIN 1,500 MG in NACL 0.9% 250 ML IV SCH (14:00)
[2016-10-08] MEDS ORDERED: VANCOMYCIN 1,500 MG in NACL 0.9% 500 ML IV SCH ×2 (15:00→15:24)
[2016-10-08] MEDS: MORPHINE SULFATE 2 MG/ML SYR IVP PRN ×2 (15:49→21:01)
--- NOTE | 2016-10-08 15:51 | NUR ---
PT RESTING IN BED. NO S/S OF ACUTE DISTRESS. PT STATES PAIN IS 9/10 ON LEFT FOOT. MEDICATED ORDERED. WILL CONTINUE TO MONITOR.
[2016-10-08 16:00] VITALS: BP 127/69
[2016-10-08] MEDS ORDERED: BLOOD GLUCOSE MONITORING 1 DEV DEV FS SCH (16:30)
[2016-10-08] MEDS ORDERED: DEXTROSE 50% 50 ML SYR IVP PRN (16:55)
--- NOTE | 2016-10-08 19:19 | NUR ---
ENDORSED PLAN OF CARE TO NIGHT RN. PT REMAINS STABLE.
--- NOTE | 2016-10-08 19:20 | NUR ---
RECEIVED REPORT FROM MORNING SHIFT RN AT BEDSIDE, PT IS AAOX4, ABLE TO FOLLOW COMMANDS AND MAKE NEEDS KNOWN, VSS, C/O PAIN TO LEFT FOOT, 12/26, WILL EDUCATED AND MEDICATED, NO S/S OF SOB/DISTRESS, CLEAR LUNG SOUND, ON RA. DENIES CHEST PAIN, SR ON TELE MONITOR. SOFT ABDOMEN WITH ACTIVE BOWEL SOUNDS, CONTINENT WITH B&B, AMBULATE WITH ASSIST, AFEBRILE, SKIN IS WARM AND DRY TO TOUCH, LEFT TOE ULCER NOTED, RIGHT FOREARM ABRASION NOTED, IV SITE TO LEFT HAND 20GA, RUNNING WITH NS AT 130ML/HR. EXPLAINED PLAN OF CARE TO PT, PT VERBALIZED UNDERSTANDING, PLACED PATIENT AT A COMFORT POSITION, SAFETY MEASURES IN PLACE, CALL LIGHT WITHIN REACH, WILL CONTINUE TO MONITOR.
[2016-10-08 20:00] VITALS: BP 111/72
[2016-10-08] MEDS: INSULIN DETEMIR 100 UNITS/ML 10 ML VIAL SUBQ SCH (20:57)
[2016-10-08] MEDS: ATORVASTATIN 20 MG TAB PO SCH (21:00)
[2016-10-09] VITALS: BP 118/70
--- NOTE | 2016-10-09 | NUR ---
PT IS ASLEEP IN BED, NO C/O PAIN, VSS, NO CHANGE OF CONDITION AT TIS TIME.
[2016-10-09] MEDS: VANCOMYCIN 1,500 MG in NACL 0.9% 500 ML IV SCH ×2 (03:30→14:56)
[2016-10-09 04:00] VITALS: BP 115/68
--- NOTE | 2016-10-09 04:00 | NUR ---
PT IS ASLEEP IN BED, DENIES PAIN, NO S/S OF DISTRESS, SR ON TELE MONITOR, VSS.
[2016-10-09] MEDS: GABAPENTIN 300 MG CAP PO SCH ×3 (04:56→20:58)
[2016-10-09 06:49] LABS: BASOPHILS % (AUTO) 0.8 % (0.0-2.0); EOSINOPHILS # (AUTO) 0.1 K/uL (0-0.4); EOSINOPHILS % (AUTO) 2.3 % (0.0-4.0); HEMATOCRIT 40.8 % (36-52); HEMOGLOBIN 13.9 g/dL (12.0-18.0); LYMPHOCYTES # (AUTO) 2.1 K/uL (2.0-11.5); LYMPHOCYTES % (AUTO) 37.5 % (20.5-51.1); MEAN CORPUSCULAR HEMOGLOBIN 27 pg (27-31); MEAN CORPUSCULAR HGB CONC 34 g/dL (33-37); MEAN CORPUSCULAR VOLUME 81 fL (80-94); MONOCYTES # (AUTO) 0.7 K/uL (0.8-1.0); MONOCYTES % (AUTO) 12.1 % (1.7-9.3); NEUTROPHILS # (AUTO) 2.6 K/uL (1.8-7.7); NEUTROPHILS % (AUTO) 47.3 % (42.2-75.2); PLATELET COUNT (AUTO) 199 K/uL (140-450); RED BLOOD CELL COUNT(AUTO) 5.06 MIL/uL (4.20-6.10); RED CELL DISTRIBUTION WIDTH 12.5 % (11.6-13.7); WHITE BLOOD COUNT (AUTO) 5.5 K/uL (4.8-10.8)
[2016-10-09] MEDS: BLOOD GLUCOSE MONITORING 1 DEV DEV FS SCH ×3 (06:49→16:32)
[2016-10-09 06:57] LABS: ANION GAP 10.7 (8-16); CALCIUM 7.8 mg/dL (8.5-10.1); CARBON DIOXIDE 29.2 mmol/L (21-32); CREATININE 0.6 mg/dL (0.6-1.3); POTASSIUM 3.9 mmol/L (3.5-5.1)
[2016-10-09 07:07] LABS: MAGNESIUM 1.6 mg/dL (1.8-2.4); PHOSPHORUS 3.7 mg/dL (2.5-4.9)
--- NOTE | 2016-10-09 07:10 | NUR ---
REPORT GIVEN TO MORNING SHIFT NURSE FOR CONTINUE OF CARE, PT IS IN STABLE CONDITION AT THIS TIME.
--- NOTE | 2016-10-09 07:15 | NUR ---
RECEIVED PATIENT REPOT AT BEDSIDE. PATIENT ASLEEP BUT EASILY AROUSABLE. NO S/S OF DISTRESS NOTED. PT ON ROOM AIR. NO C/O PAIN AT THIS TIME. DRESSING ON THE LEFT LEG NOTED. DRESSING CLEAN, DRY AND INTACT. PATIENT ON TELE MONITORING. BED LOWERED WITH CALL LIGHT WITHIN REACH. WILL CONTINUE TO MONITOR
[2016-10-09 07:55] VITALS: BP 114/71
[2016-10-09] MEDS: INSULIN LISPRO 100 UNITS/ML VIAL SUBQ SCH ×3 (08:00→17:50)
[2016-10-09] MEDS: LACTOBACILLUS RHAMNOSUS GG 1 EACH CAP PO SCH (08:51)
[2016-10-09] MEDS: FLUoxetine 20 MG CAP PO SCH (08:51)
[2016-10-09] MEDS: ASPIRIN 81 MG TAB.CHEW PO SCH (08:51)
--- NOTE | 2016-10-09 09:02 | NUR ---
PATIENT HAS BEEN SCREENED AND CATEGORIZED HIGH NUTRITION RISK. PATIENT WILL BE SEEN WITHIN 1-2 DAYS OF ADMISSION. 10/09/16-10/10/[address]
[2016-10-09 09:07] LABS: T4 (THYROXINE) 7.2 ug/dL (4.5-12.0)
--- NOTE | 2016-10-09 09:30 | NUR ---
MADE DR DRIVER AWARE OF PATIENT'S MG LEVEL OF 1.6
[2016-10-09] MEDS: NACL 0.9% 1,000 ML IV SCH ×3 (10:03→21:12)
[2016-10-09] MEDS: MORPHINE SULFATE 2 MG/ML SYR IVP PRN ×3 (10:03→20:59)
[2016-10-09] MEDS: HYDROcodone/APAP 7.5/325 MG 1 TAB PO PRN ×2 (11:56→23:21)
[2016-10-09] MEDS: FUROSEMIDE 20 MG TAB PO SCH (11:56)
[2016-10-09 12:00] VITALS: BP 115/68
[2016-10-09] MEDS: INSULIN LISPRO SLIDING SCALE 100 UNITS/ML VIAL SUBQ PRN ×2 (12:08→20:57)
--- NOTE | 2016-10-09 13:40 | NUR ---
10/09/16 RD INITIAL ASSESSMENT COMPLETED PLEASE REFER TO NUTRITION ASSESSMENT UNDER CARE ACTIVITY FOR ESTIMATED NUTRITIONAL NEEDS. RD RECOMMENDATIONS: 1.CONTINUE CCHO 60 GM DIET MEDICALLY APPROPRIATE. -NOTE PT MEETING ~80% OF PT ESTIMATED KCAL NEEDS AND 100% OF PT ESTIMATED PROTEIN NEEDS WITH AN AVG PO INTAKE OF 100%. 2. RECOMMEND ADDING 500 MG OF VITAMIN C FOR WOUND HEALING (NOTE PT HAS OPEN WOUND ON LEFT TOES). --NOTE RD SPOKE WITH MD ABOUT ADDING VITAMIN C, MD ACKNOWLEDGED. 3. RD PROVIDED VERBAL DM DIET EDUCATION AND DM DIET EDUCATION HANDOUT FOR PT, PT ACCEPTED. 4. RD WILL F/U 5-7 DAYS; LOW RISK. RICHELLE LITTLE RD
[2016-10-09 16:00] VITALS: BP 115/79
--- NOTE | 2016-10-09 16:51 | NUR ---
PATIENT RESTING IN BED. NO S/S OF DISTRESS NOTED
--- NOTE | 2016-10-09 19:30 | NUR ---
PATIENT REPORT GIVEN AT BEDSIDE. PATIENT ENDORSED IN STABLE CONDITION
--- NOTE | 2016-10-09 19:31 | NUR ---
RECEIVED REPORT FROM DAY RN FOR CONTINUITY OF CARE. PATIENT IS A&OX4, DISCUSSED PLAN OF CARE WITH PATIENT, VERBALIZED UNDERSTANDING. SHIFT ASSESSMENT DONE,VS TAKEN, STABLE AT THIS TIME. NO S/S OF RESPIRATORY DISTRESS OR DISCOMFORT NOTED. PATIENT STATES TOLERABLE PAIN, WILL MEDICATE PER MD ORDER. PATIENT HAS LT TOE ULCER, DRESSING DRY AND INTACT. RT ARM ABRASION COVERED WITH TEGADERM. LT HAND IV 20 GAUGE PATENT AND INFUSING FLUIDS WELL. SAFETY/FALL PRECAUTIONS ENFORCED. CALL LIGHT WITHIN REACH. WILL CONTINUE TO MONITOR.
[2016-10-09 20:00] VITALS: BP 109/68
[2016-10-09] MEDS ORDERED: MAGNESIUM OXIDE 400 MG TAB PO SCH (20:05)
[2016-10-09] MEDS: INSULIN DETEMIR 100 UNITS/ML 10 ML VIAL SUBQ SCH (20:56)
[2016-10-09] MEDS: ATORVASTATIN 20 MG TAB PO SCH (20:58)
--- NOTE | 2016-10-09 20:58 | NUR ---
DUE MEDICATIONS ADMINISTERED, TOLERATED WELL. SAFETY PRECAUTIONS ENFORCED. CALL LIGHT WITHIN REACH. WILL CONTINUE TO MONITOR.
--- NOTE | 2016-10-09 22:00 | NUR ---
PT USING ON HIS PHONE. PT STATES HE IS A LITTLE NERVOUS ABOUT TOMORROW'S PROCEDURE. WILL CONTINUE TO MONITOR PT. Addendum: 10/10/16 at 2375 by Tayla Casillas RN ENTRY ON WRONG DATE.
--- NOTE | 2016-10-09 23:21 | NUR ---
PT C/O PAIN TO TOE, MEDICATED PER MD ORDER. VITAL SIGNS STABLE AT THIS TIME. PATIENT ATE SNACK, TOLERATED WELL. EMPTIED 900 ML CLEAR YELLOW URINE FORM URINAL. CALL LIGHT WITHIN REACH.
[2016-10-10] VITALS: BP 122/73
--- NOTE | 2016-10-10 02:05 | NUR ---
PATIENT SLEEPING AT THIS TIME, NO S/S OF DISTRESS OR DISCOMFORT NOTED. CALL LIGHT WITHIN REACH.
[2016-10-10] MEDS: VANCOMYCIN 1,500 MG in NACL 0.9% 500 ML IV SCH ×3 (03:11→23:11)
[2016-10-10] MEDS: MORPHINE SULFATE 2 MG/ML SYR IVP PRN ×4 (03:21→16:33)
--- NOTE | 2016-10-10 03:45 | NUR ---
VITAL SIGNS STABLE AT THIS TIME, PATIENT MEDICATED FOR C/O TOE PAIN. SAFETY MEASURES ENFORCED, CALL LIGHT WITHIN REACH.
[2016-10-10 04:00] VITALS: BP 108/75
[2016-10-10] MEDS: GABAPENTIN 300 MG CAP PO SCH ×3 (05:04→20:31)
--- NOTE | 2016-10-10 05:50 | NUR ---
NEW IV LINE INSERTION TO LT FA 22 GAUGE PATENT AND INFUSING FLUIDS WELL. IV TO LT HAND SALINE LOCK. PATIENT RESTING AT THIS TIME. CALL LIGHT WITHIN REACH, WILL CONTINUE TO MONITOR.
[2016-10-10] MEDS: BLOOD GLUCOSE MONITORING 1 DEV DEV FS SCH ×3 (06:15→16:40)
[2016-10-10 07:15] LABS: BASOPHILS # (AUTO) 0.1 K/uL (0.00-0.22); BASOPHILS % (AUTO) 1.9 % (0.0-2.0); EOSINOPHILS # (AUTO) 0.1 K/uL (0-0.4); EOSINOPHILS % (AUTO) 2.5 % (0.0-4.0); HEMATOCRIT 44.8 % (36-52); HEMOGLOBIN 14.3 g/dL (12.0-18.0); LYMPHOCYTES # (AUTO) 2.2 K/uL (2.0-11.5); LYMPHOCYTES % (AUTO) 37.9 % (20.5-51.1); MEAN CORPUSCULAR HEMOGLOBIN 26 pg (27-31); MEAN CORPUSCULAR HGB CONC 32 g/dL (33-37); MEAN CORPUSCULAR VOLUME 82 fL (80-94); MONOCYTES # (AUTO) 0.6 K/uL (0.8-1.0); MONOCYTES % (AUTO) 10.4 % (1.7-9.3); NEUTROPHILS # (AUTO) 2.7 K/uL (1.8-7.7); NEUTROPHILS % (AUTO) 47.3 % (42.2-75.2); PLATELET COUNT (AUTO) 247 K/uL (140-450); RED BLOOD CELL COUNT(AUTO) 5.46 MIL/uL (4.20-6.10); RED CELL DISTRIBUTION WIDTH 12.4 % (11.6-13.7); WHITE BLOOD COUNT (AUTO) 5.7 K/uL (4.8-10.8)
--- NOTE | 2016-10-10 07:15 | NUR ---
RECEIVED PATIENT REPORT. PATIENT AWAKE, ALERT AND ORIENTED. NO S/S OF DISTRESS NOTED. DRESSING TO THE LEFT LEG CLEAN, DRY AND INTACT. IV LINE NOTED TO THE LEFT FOREARM WITH IVF INFUSING WELL. PATIENT ON TELE MONITORING. BED LOWERED WITH CALL LIGHT WITHIN REACH. WILL CONTINUE TO MONITOR
--- NOTE | 2016-10-10 07:25 | NUR ---
ENDORSED PATIENT TO DAY RN FOR CONTINUITY OF CARE, PATIENT IS IN STABLE CONDITION AT THIS TIME.
[2016-10-10 07:50] LABS: ANION GAP 9.8 (8-16); CALCIUM 8.1 mg/dL (8.5-10.1); CREATININE 0.6 mg/dL (0.6-1.3); POTASSIUM 3.8 mmol/L (3.5-5.1)
[2016-10-10 08:00] VITALS: BP 116/84
[2016-10-10] MEDS: FLUoxetine 20 MG CAP PO SCH (08:20)
[2016-10-10] MEDS: LACTOBACILLUS RHAMNOSUS GG 1 EACH CAP PO SCH (08:21)
[2016-10-10] MEDS: ASPIRIN 81 MG TAB.CHEW PO SCH (08:21)
[2016-10-10] MEDS: INSULIN LISPRO 100 UNITS/ML VIAL SUBQ SCH ×3 (08:22→17:41)
[2016-10-10] MEDS: NACL 0.9% 1,000 ML IV SCH ×2 (09:18→17:00)
[2016-10-10] MEDS: FUROSEMIDE 20 MG TAB PO SCH (11:43)
[2016-10-10] MEDS: HYDROcodone/APAP 7.5/325 MG 1 TAB PO PRN ×2 (11:43→20:31)
[2016-10-10 12:00] VITALS: BP 116/73
--- NOTE | 2016-10-10 13:29 | NUR ---
MADE DR TONY AWARE OF PATIENT'S PERSISTENT RIGHT LEG PAIN. TO SEE THE PATIENT
[2016-10-10 16:00] VITALS: BP 116/77
--- NOTE | 2016-10-10 16:20 | NUR ---
PATIENT SEEN BY DR CIFUENTES.WOUND DRESSING ON THE LEFT BIG TOE CHANGED BY DR CIFUENTES. CONSENT OBTAINED FROM THE PATIENT FOR LEFT HALLUX AMPUTATION. CONSENT FILED IN THE CHART
--- NOTE | 2016-10-10 19:15 | NUR ---
RECEIVED REPORT FROM CHRISTIAN NEWMAN AT BEDSIDE. INITIAL ASSESSMENT COMPLETED. PT [id number]. PT USING HIS PHONE AT THIS TIME. PT AMBULATORY. PT HAS IV ON LEFT FOREARM 22G SL AND RIGHT HAND 22G INFUSING FLUIDS WELL. PT HAS LEFT TOE ULCER COVERED COVERED WITH DRESSING DRY AND INTACT. ORIENTED PT TO ROOM AND SURROUNDINGS AND USE OF CALL LIGHT. EXPLAINED PLAN OF CARE TO PT AND HE VERBALIZES UNDERSTANDING. WILL CONTINUE TO MONITOR PT. CALL LIGHT WITHIN REACH.
--- NOTE | 2016-10-10 19:20 | NUR ---
PATIENT REPORT GIVEN AT BEDSIDE. PATIENT ENDORSED IN STABLE CONDITION
[2016-10-10] MEDS: ALBUTEROL SULFATE/IPRATROPIU 3 ML SOL IH PRN (19:56)
[2016-10-10 20:00] VITALS: BP 115/78
--- NOTE | 2016-10-10 20:28 | NUR ---
PT COMPLAINING OF TOE PAIN 08/25. VS STABLE, WILL MEDICATE ORDERED.
[2016-10-10] MEDS: ATORVASTATIN 20 MG TAB PO SCH (20:31)
[2016-10-10] MEDS: INSULIN LISPRO SLIDING SCALE 100 UNITS/ML VIAL SUBQ PRN (20:33)
[2016-10-10] MEDS: INSULIN DETEMIR 100 UNITS/ML 10 ML VIAL SUBQ SCH (20:34)
--- NOTE | 2016-10-10 20:36 | NUR ---
PT TOLERATED 2100 MEDS WELL. CALL LIGHT WITHIN REACH.
--- NOTE | 2016-10-10 22:15 | NUR ---
PT USING ON HIS PHONE. PT STATES HE IS A LITTLE NERVOUS ABOUT TOMORROW'S PROCEDURE. WILL CONTINUE TO MONITOR PT.
[2016-10-11] VITALS: BP 112/74
--- NOTE | 2016-10-11 00:10 | NUR ---
CHECKED ON PT, VS STABLE. PT AWARE THAT HE IS NPO FOR SURGERY IN THE MORNING. CALL LIGHT WITHIN REACH.
[2016-10-11] MEDS: NACL 0.9% 1,000 ML IV SCH ×4 (00:42→23:36)
--- NOTE | 2016-10-11 03:23 | NUR ---
PT SLEEPING COMFORTABLY AT THIS TIME. WILL CONTINUE TO MONITOR PT.
[2016-10-11 04:00] VITALS: BP 118/75
[2016-10-11] MEDS: GABAPENTIN 300 MG CAP PO SCH ×3 (04:52→20:41)
--- NOTE | 2016-10-11 05:20 | NUR ---
PT SLEEPING, NO DISTRESS NOTED. WILL CONTINUE TO MONITOR PT.
[2016-10-11] MEDS: BLOOD GLUCOSE MONITORING 1 DEV DEV FS SCH ×3 (06:35→17:27)
[2016-10-11 07:07] LABS: BASOPHILS # (AUTO) 0.2 K/uL (0.00-0.22); BASOPHILS % (AUTO) 2.5 % (0.0-2.0); EOSINOPHILS # (AUTO) 0.1 K/uL (0-0.4); EOSINOPHILS % (AUTO) 1.6 % (0.0-4.0); HEMATOCRIT 42.3 % (36-52); HEMOGLOBIN 13.7 g/dL (12.0-18.0); LYMPHOCYTES % (AUTO) 31.7 % (20.5-51.1); MEAN CORPUSCULAR HEMOGLOBIN 26 pg (27-31); MEAN CORPUSCULAR HGB CONC 32 g/dL (33-37); MEAN CORPUSCULAR VOLUME 81 fL (80-94); MONOCYTES # (AUTO) 0.5 K/uL (0.8-1.0); MONOCYTES % (AUTO) 7.5 % (1.7-9.3); NEUTROPHILS # (AUTO) 3.5 K/uL (1.8-7.7); NEUTROPHILS % (AUTO) 56.7 % (42.2-75.2); PLATELET COUNT (AUTO) 249 K/uL (140-450); RED BLOOD CELL COUNT(AUTO) 5.22 MIL/uL (4.20-6.10); RED CELL DISTRIBUTION WIDTH 12.8 % (11.6-13.7); WHITE BLOOD COUNT (AUTO) 6.3 K/uL (4.8-10.8)
--- NOTE | 2016-10-11 07:20 | NUR ---
ENDORSED PLAN OF CARE TO DAY SHIFT RN. PT IN STABLE CONDITION.
--- NOTE | 2016-10-11 07:20 | NUR ---
Received patient from machinist 2nd shift RN, patient sleeping, resting comfortably and no signs of distress noted.
[2016-10-11 07:24] LABS: ANION GAP 10.2 (8-16); CALCIUM 7.8 mg/dL (8.5-10.1); CARBON DIOXIDE 27.8 mmol/L (21-32); CREATININE 0.6 mg/dL (0.6-1.3)
[2016-10-11 08:00] VITALS: BP 115/71
[2016-10-11] MEDS: INSULIN LISPRO 100 UNITS/ML VIAL SUBQ SCH ×3 (08:00→17:06)
--- NOTE | 2016-10-11 08:46 | NUR ---
I spoke with Rogelio pharmacist regarding vanco trough, he said ok to give the vanco same dose
[2016-10-11] MEDS: ASPIRIN 81 MG TAB.CHEW PO SCH (09:20)
[2016-10-11] MEDS: FLUoxetine 20 MG CAP PO SCH (09:20)
[2016-10-11] MEDS: LACTOBACILLUS RHAMNOSUS GG 1 EACH CAP PO SCH (09:20)
[2016-10-11] MEDS: VANCOMYCIN 1,500 MG in NACL 0.9% 500 ML IV SCH ×3 (09:21→23:36)
[2016-10-11] MEDS: MORPHINE SULFATE 2 MG/ML SYR IVP PRN ×3 (09:29→21:10)
[2016-10-11 12:00] VITALS: BP 112/78
[2016-10-11] MEDS: FUROSEMIDE 20 MG TAB PO SCH (12:30)
--- NOTE | 2016-10-11 12:33 | NUR ---
Patient awake and oriented x4, waiting for surgery, pending left toe amputation. no signs of distress noted, VS stable.
--- NOTE | 2016-10-11 12:59 | NUR ---
patient left the unit going to surgery, SBAR report given to princess Hernandez
[2016-10-11] MEDS ORDERED: SEVOFLURANE 250 ML BTL INH ONE (13:12)
[2016-10-11] MEDS ORDERED: KETOROLAC 30 MG/ML VIAL IVP ONE (13:12)
[2016-10-11] MEDS ORDERED: PROPOFOL 200 MG/20 ML VIAL IV ONE (13:12)
[2016-10-11] MEDS ORDERED: ONDANSETRON 4 MG/2 ML VIAL IVP ONE (13:12)
[2016-10-11] MEDS ORDERED: fentaNYL 0.05 MG/ML VIAL ONE (13:14)
[2016-10-11] MEDS ORDERED: BUPIVACAINE-MPF 0.5% 30 ML VIAL INJ ONE (13:21)
[2016-10-11] MEDS: INSULIN LISPRO SLIDING SCALE 100 UNITS/ML VIAL SUBQ PRN ×2 (14:30→17:06)
[2016-10-11 15:00] VITALS: BP 113/73
--- NOTE | 2016-10-11 15:00 | NUR ---
Patient back from surgery, alert oriented and denies pain at this time, VS stable.
--- NOTE | 2016-10-11 15:07 | NUR ---
SS NOTE: I SPOKE WITH PT AND PT'S SIGNIFICANT OTHER, NIKITA COX. I PROVIDED PT WITH MENTAL HEALTH RESOURCES. PT STATED THAT HE WILL FOLLOW UP WITH [facility] IN [place].
--- NOTE | 2016-10-11 15:46 | NUR ---
Notified MD residents that patient back from surgery and wants to know if he can eat.
--- NOTE | 2016-10-11 18:43 | NUR ---
Patient ate dinner 100%, tolerated well, denies nausea or vomiting, resting comfortably in bed, family at bedside.
--- NOTE | 2016-10-11 19:07 | NUR ---
Endorsed plan of care to CHRISTIAN Olson.
--- NOTE | 2016-10-11 19:30 | NUR ---
RECEIVED FROM AM RN IN BED AWAKE AND WATCHING TV. VISITORS AROUND. VERBALIZING WELL WITH THEM. CALL LIGHT WITH IN REACH AND CARE PLANS FOR THE NIGHT DISCUSSED WITH HIM. LEFT FOOT WITH BANDAGE AND NO BLEEDING NOTED. DENIES PAIN AT THIS TIME. IVF SITE TO RIGHT HAND INTACT AND NO INFILTRATION.
[2016-10-11] MEDS: ATORVASTATIN 20 MG TAB PO SCH (20:41)
[2016-10-11] MEDS: INSULIN DETEMIR 100 UNITS/ML 10 ML VIAL SUBQ SCH (20:47)
--- NOTE | 2016-10-11 22:00 | NUR ---
PT. STILL AWAKE AND WATCHING TV. ENCOURGED TO SLEEP. "LATER" CALL LIGHT WITH IN REACH. DRESSING TO LEFT TOE INTACT AND NO BLEEDING NOTED.
[2016-10-12] VITALS: BP 110/74
--- NOTE | 2016-10-12 00:33 | NUR ---
SLEEPING. WAKES UP WHEN TOUCHED. NO SOB. CALL LIGHT WITH IN REACH.
[2016-10-12] MEDS: MORPHINE SULFATE 2 MG/ML SYR IVP PRN ×6 (02:49→23:35)
--- NOTE | 2016-10-12 03:10 | NUR ---
WOKE UP AND REQUESTED FOR PAIN RELIEVER RT PAIN TO S/P LEFT GREAT TOE PARTIAL AMPUTATION 10/11/16 . ABLE TO VERBALIZE NEEDS WELL. USES CALL LIGHT FOR HELP. MEDICATED REQUESTED WITH MORPHINE 2 MG IVP.
[2016-10-12] MEDS: BLOOD GLUCOSE MONITORING 1 DEV DEV FS SCH ×3 (05:37→16:46)
[2016-10-12] MEDS: GABAPENTIN 300 MG CAP PO SCH ×3 (05:39→20:13)
[2016-10-12] MEDS: INSULIN LISPRO SLIDING SCALE 100 UNITS/ML VIAL SUBQ PRN ×2 (05:42→18:00)
--- NOTE | 2016-10-12 07:22 | NUR ---
RECEIVED PT IN BED. AWAKE. ALERT ORIENTEDX4 NO SOB NOTED. DENIES ANY PAIN OR DISCOMFORT AT THIS TIME. POSITIVE BOWEL SOUNDS NOTED ON FOUR QUADRANTS. PT AMBULATORY WITH ASSIST. SAFETY PRECAUTION IN PLACE. CALL LIGHT WITHIN REACH.
[2016-10-12] MEDS: NACL 0.9% 1,000 ML IV SCH ×3 (07:30→22:54)
[2016-10-12 07:58] VITALS: BP 111/77
[2016-10-12] MEDS: LACTOBACILLUS RHAMNOSUS GG 1 EACH CAP PO SCH (08:08)
[2016-10-12] MEDS: ASCORBIC ACID 500 MG TAB PO SCH (08:08)
[2016-10-12] MEDS: FLUoxetine 20 MG CAP PO SCH (08:08)
[2016-10-12] MEDS: ASPIRIN 81 MG TAB.CHEW PO SCH (08:08)
[2016-10-12] MEDS: INSULIN LISPRO 100 UNITS/ML VIAL SUBQ SCH ×3 (08:18→17:59)
[2016-10-12 08:22] LABS: ANION GAP 12.1 (8-16); CALCIUM 7.8 mg/dL (8.5-10.1); CARBON DIOXIDE 27.1 mmol/L (21-32); CREATININE 0.7 mg/dL (0.6-1.3); POTASSIUM 4.2 mmol/L (3.5-5.1)
[2016-10-12] MEDS: FUROSEMIDE 20 MG TAB PO SCH (11:37)
--- NOTE | 2016-10-12 12:05 | NUR ---
PT RIGHT IV GOT INFILTRATED. ICE PACK APPLIED. PT DENIES ANY PAIN OR DISCOMFORT ON POST IV SITE. REINSERTED NEW IV LINE ON PT'S LEFT WRIST G22. PATENT INTACT, FLUSHING GOOD.
[2016-10-12] MEDS: VANCOMYCIN 1,250 MG in DEXTROSE 5% 250 ML IV SCH ×2 (12:37→20:13)
[2016-10-12] MEDS ORDERED: VANCOMYCIN PER PHARMACY MC PRN (14:05)
[2016-10-12 16:00] VITALS: BP 118/76
[2016-10-12 16:02] LABS: HEMOGLOBIN A1C 13.9 % (4.8-5.6)
--- NOTE | 2016-10-12 19:28 | NUR ---
PT KEPT CLEAN, DRY AND COMFORTABLE NEEDS ATTENDED. NO SOB NOTED. ENDORSED TO NEXT SHIFT FOR CONTINUITY OF CARE. PT ON STABLE CONDITION.
--- NOTE | 2016-10-12 19:30 | NUR ---
RECEIVED FROM AM RN IN BED AWAKE AND WATCHING TV VERBALIZING WELL . CALL LIGHT WITH IN REACH AND CARE PLANS FOR THE NIGHT DISCUSSED WITH HIM. LEFT FOOT WITH BANDAGE AND NO BLEEDING NOTED. DENIES PAIN AT THIS TIME. IVF SITE TO LEFT WRIST #22 INTACT AND NO INFILTRATION. NO COMPLAINTS DONE AT THIS TIME.
[2016-10-12] MEDS: ATORVASTATIN 20 MG TAB PO SCH (20:13)
[2016-10-12] MEDS: INSULIN DETEMIR 100 UNITS/ML 10 ML VIAL SUBQ SCH (20:17)
--- NOTE | 2016-10-12 22:30 | NUR ---
PT. STILL AWAKE AND WATCHING TV. NO COMPLAINTS. PT. LIKES TO HAVE MORPHINE 2 MG IVP Q 3H. DRESSING TO LEFT FEET INTACT AND DRY.
[2016-10-13 00:28] VITALS: BP 112/74
[2016-10-13] MEDS: MORPHINE SULFATE 2 MG/ML SYR IVP PRN ×5 (02:44→20:55)
[2016-10-13] MEDS: NACL 0.9% 1,000 ML IV SCH ×3 (04:04→22:33)
[2016-10-13] MEDS: VANCOMYCIN 1,250 MG in DEXTROSE 5% 250 ML IV SCH ×3 (04:12→20:56)
--- NOTE | 2016-10-13 05:25 | NUR ---
SLEEPING WELL THIS SHIFT.
[2016-10-13] MEDS: BLOOD GLUCOSE MONITORING 1 DEV DEV FS SCH ×3 (05:50→16:55)
[2016-10-13] MEDS: GABAPENTIN 300 MG CAP PO SCH ×3 (05:50→20:56)
[2016-10-13] MEDS: INSULIN LISPRO SLIDING SCALE 100 UNITS/ML VIAL SUBQ PRN ×2 (05:51→17:09)
[2016-10-13 06:19] LABS: BASOPHILS # (AUTO) 0.1 K/uL (0.00-0.22); BASOPHILS % (AUTO) 1.7 % (0.0-2.0); EOSINOPHILS # (AUTO) 0.2 K/uL (0-0.4); EOSINOPHILS % (AUTO) 2.6 % (0.0-4.0); HEMATOCRIT 36.8 % (36-52); HEMOGLOBIN 12.5 g/dL (12.0-18.0); LYMPHOCYTES # (AUTO) 2.1 K/uL (2.0-11.5); LYMPHOCYTES % (AUTO) 29.8 % (20.5-51.1); MEAN CORPUSCULAR HEMOGLOBIN 28 pg (27-31); MEAN CORPUSCULAR HGB CONC 34 g/dL (33-37); MEAN CORPUSCULAR VOLUME 82 fL (80-94); MONOCYTES # (AUTO) 0.9 K/uL (0.8-1.0); MONOCYTES % (AUTO) 12.2 % (1.7-9.3); NEUTROPHILS # (AUTO) 3.8 K/uL (1.8-7.7); NEUTROPHILS % (AUTO) 53.7 % (42.2-75.2); PLATELET COUNT (AUTO) 255 K/uL (140-450); RED CELL DISTRIBUTION WIDTH 12.3 % (11.6-13.7); WHITE BLOOD COUNT (AUTO) 7.1 K/uL (4.8-10.8)
[2016-10-13 06:43] LABS: ANION GAP 10.7 (8-16); CALCIUM 7.6 mg/dL (8.5-10.1); CARBON DIOXIDE 28.2 mmol/L (21-32); CREATININE 0.6 mg/dL (0.6-1.3); POTASSIUM 3.9 mmol/L (3.5-5.1)
--- NOTE | 2016-10-13 06:47 | NUR ---
AWAKE AND REQUESTED FOR PAIN RELIEVER MORPHINE 2MG IVP. MEDICATED REQUESTED.
--- NOTE | 2016-10-13 07:23 | NUR ---
ENDORSED TO THE NEXT RN FOR CONTINUITY OF CARE. AWAKE AND ALERT. NO COMPLAINTS DONE AT THIS TIME. VERBALIZES WELL.
--- NOTE | 2016-10-13 07:25 | NUR ---
RECEIVED PT IN BED. AWAKE. ALERT ORIENTEDX4. NO SOB NOTED. DENIES ANY PAIN OR DISCOMFORT AT THIS TIME. POSITIVE BOWEL SOUNDS NOTED ON FOUR QUADRANTS. PT AMBULATORY WITH ASSIST. DENIES ANY PROBLEM WITH BOWEL OR BLADDER ELIMINATION AT THIS TIME. SAFETY PRECAUTION IN PLACE. CALL LIGHT WITHIN REACH.
[2016-10-13 08:00] VITALS: BP 135/79
[2016-10-13] MEDS: ASCORBIC ACID 500 MG TAB PO SCH (08:25)
[2016-10-13] MEDS: FLUoxetine 20 MG CAP PO SCH (08:25)
[2016-10-13] MEDS: LACTOBACILLUS RHAMNOSUS GG 1 EACH CAP PO SCH (08:25)
[2016-10-13] MEDS: ASPIRIN 81 MG TAB.CHEW PO SCH (08:25)
[2016-10-13] MEDS: INSULIN LISPRO 100 UNITS/ML VIAL SUBQ SCH ×3 (08:28→17:08)
--- NOTE | 2016-10-13 10:04 | NUR ---
PHYSICAL THERAPIST CAME TO SEE PT. PT REQUESTED TO HAVE HIS MORPHINE IVP PRN AFTER HIS THERAPY. PER PHYSICAL THERAPY REPOST. PATIENT, ABLE TO AMBULATE WITH WALKER STEADILY.
--- NOTE | 2016-10-13 11:52 | NUR ---
REJI FROM LABS CAME TO SEE PT AND DRAW TROUGH FOR VANCOMYCIN.
[2016-10-13] MEDS: FUROSEMIDE 20 MG TAB PO SCH (11:58)
--- NOTE | 2016-10-13 13:10 | NUR ---
RECEIVED RESULT FOR VANCOMYCIN TROUGH. CALLED PHARMACIST LANDON AND MADE AWARE. HE SAID TO GIVE THE PREPARED DOSE.
--- NOTE | 2016-10-13 15:07 | NUR ---
PHYSICAL THERAPY CO-SIGN The Physical Therapy Progress Notes documented by Braider Tender have been reviewed. Reviewed/Co-Signed by: Lisbeth Eddy Documentation Done by:KIRSTIN ADAMS PARALEGAL SPECIALIST PROGRESSING W/ GAIT ENDURANCE & FUNC MOB; ABLE TO MAINTAIN WB PREC; REFUSES CRUTCHES, WANTS FWW. Addendum: 10/13/16 at 1508 by Lisbeth Eddy PT Amended: Links added.
[2016-10-13 16:00] VITALS: BP 115/79
--- NOTE | 2016-10-13 19:30 | NUR ---
RECEIVED REPORT FROM DAY RN AT BEDSIDE, PATIENT IS AAO X4 ON ROOM AIR, NO SIGN OF DISTRESS AT THIS TIME, IV TO LEFT HAND PATENT AND INTACT, SKIN NON INTACT, DRESSING TO LOWER LEFT EXTREMITY DRY AND INTACT, PATIENT C/O PAIN IN LEG, WILL MEDICATE. DISCUSSED PLAN OF CARE WITH PATIENT, PATIENT VERBALIZED UNDERSTANDING, CALL LIGHT WITHIN REACH. WILL CONTINUE TO MONITOR.
--- NOTE | 2016-10-13 19:35 | NUR ---
PT KEPT CLEAN DRY, AND COMFORTABLE, NEEDS ATTENDED. ENDORSED TO NEXT SHIFT FOR CONTINUITY OF CARE. PT ON STABLE CONDITION.
[2016-10-13] MEDS: ALBUTEROL SULFATE/IPRATROPIU 3 ML SOL IH PRN (20:43)
[2016-10-13] MEDS: ATORVASTATIN 20 MG TAB PO SCH (20:56)
[2016-10-13] MEDS: INSULIN DETEMIR 100 UNITS/ML 10 ML VIAL SUBQ SCH (21:57)
--- NOTE | 2016-10-13 22:00 | NUR ---
PM MEDS ADMINISTERED , PATIENT TOLERATED WELL, WILL CONTINUE TO MONITOR
[2016-10-14] VITALS: BP 120/77
--- NOTE | 2016-10-14 00:10 | NUR ---
PATIENT SLEEPING, NO SIGN OF DISTRESS, VITALS STABLE, CALL LIGHT WITHIN REACH. WILL CONTINUE TO MONITOR.
[2016-10-14] MEDS: MORPHINE SULFATE 2 MG/ML SYR IVP PRN ×4 (00:58→13:20)
--- NOTE | 2016-10-14 02:20 | NUR ---
PT SLEEPING, NO SIGN OF DISTRESS, WILL CONTINUE TO MONITOR.
--- NOTE | 2016-10-14 03:58 | NUR ---
PT SLEEPING, NO SIGN OF DISTRESS, CALL LIGHT WITHIN REACH. WILL CONTINUE TO MONITOR.
[2016-10-14] MEDS: GABAPENTIN 300 MG CAP PO SCH ×2 (04:30→13:22)
[2016-10-14] MEDS: VANCOMYCIN 1,250 MG in DEXTROSE 5% 250 ML IV SCH ×2 (05:12→13:20)
[2016-10-14] MEDS: NACL 0.9% 1,000 ML IV SCH (05:46)
[2016-10-14] MEDS: BLOOD GLUCOSE MONITORING 1 DEV DEV FS SCH ×2 (06:35→11:30)
[2016-10-14 06:52] LABS: BASOPHILS # (AUTO) 0.1 K/uL (0.00-0.22); BASOPHILS % (AUTO) 1.3 % (0.0-2.0); EOSINOPHILS # (AUTO) 0.1 K/uL (0-0.4); EOSINOPHILS % (AUTO) 2.1 % (0.0-4.0); HEMATOCRIT 40.3 % (36-52); HEMOGLOBIN 13.2 g/dL (12.0-18.0); LYMPHOCYTES # (AUTO) 1.9 K/uL (2.0-11.5); MEAN CORPUSCULAR HEMOGLOBIN 27 pg (27-31); MEAN CORPUSCULAR HGB CONC 33 g/dL (33-37); MEAN CORPUSCULAR VOLUME 82 fL (80-94); MONOCYTES # (AUTO) 0.8 K/uL (0.8-1.0); MONOCYTES % (AUTO) 14.1 % (1.7-9.3); NEUTROPHILS # (AUTO) 3.1 K/uL (1.8-7.7); NEUTROPHILS % (AUTO) 50.5 % (42.2-75.2); PLATELET COUNT (AUTO) 262 K/uL (140-450); RED BLOOD CELL COUNT(AUTO) 4.94 MIL/uL (4.20-6.10); RED CELL DISTRIBUTION WIDTH 12.6 % (11.6-13.7)
[2016-10-14 07:08] LABS: CALCIUM 8.1 mg/dL (8.5-10.1); CREATININE 0.6 mg/dL (0.7-1.3)
[2016-10-14 07:13] LABS: MAGNESIUM 1.6 mg/dL (1.8-2.4); PHOSPHORUS 4.7 mg/dL (2.5-4.9)
--- NOTE | 2016-10-14 07:30 | NUR ---
ENDORSED PATIENT TO DAY RN AT BEDSIDE, PATIENT IN STABLE CONDITION
--- NOTE | 2016-10-14 07:31 | NUR ---
RECEIVED REPORT AT PT BEDSIDE. PT ASLEEP, EASILY AWAKENS. AAOX4. DRESSING TO LEFT FOOT DRY AND INTACT. DENIES DISCOMFORT AT THIS TIME. IV SITE PATENT AND INTACT. CALL LIGHT WITHIN REACH. NO S/S OF RESPIRATORY DISTRESS.
[2016-10-14 08:00] VITALS: BP 114/76
[2016-10-14] MEDS: ASCORBIC ACID 500 MG TAB PO SCH (08:23)
[2016-10-14] MEDS: FLUoxetine 20 MG CAP PO SCH (08:24)
[2016-10-14] MEDS: ASPIRIN 81 MG TAB.CHEW PO SCH (08:24)
[2016-10-14] MEDS: LACTOBACILLUS RHAMNOSUS GG 1 EACH CAP PO SCH (08:24)
[2016-10-14] MEDS: INSULIN LISPRO 100 UNITS/ML VIAL SUBQ SCH ×2 (08:25→13:21)
[2016-10-14] MEDS ORDERED: SULF-59 PO (10:37)
[2016-10-14] MEDS ORDERED: HYDR-4446 PO (10:38)
[2016-10-14] MEDS ORDERED: DOCU-67 PO (10:39)
--- NOTE | 2016-10-14 10:46 | NUR ---
PATIENT TOLERATED BREAKFAST. MEDICATED FOR PAIN, RESTING IN BED, NO S/S OF ACUTE DISTRESS.
[2016-10-14] MEDS ORDERED: MAG SULF 2000 MG/WATER PREMIX 50 ML IV SCH (11:30)
--- NOTE | 2016-10-14 12:07 | NUR ---
SS NOTE: I SPOKE WITH CATHLEEN FROM [facility] ([phone]). SHE STATED THAT THEY ACCEPT [facility]. PT INFORMATION SENT TO [facility], RECEIVED FAX CONFIRMATION I SPOKE WITH CATHLEEN AGAIN. SHE STATED THAT SHE RECEIVED PT'S INFORMATION BUT PT WILL HAVE TO COME WITH A WRITTEN PRESCRIPTION TO [employer] HIS WALKER. I SPOKE WITH PT BEDSIDE. I INFORMED HIM OF THE ABOVE INFORMATION AND PROVIDED HIM WITH HIS WRITTEN PRESCRIPTION BY DR. SERRA FOR HIS WALKER. PT STATED THAT HIS GIRLFRIEND WILL TAKE HIM TO [employer] THE WALKER TODAY AND HE KNOWS WHERE [facility] IS LOCATED.
--- NOTE | 2016-10-14 12:13 | NUR ---
SS NOTE: SARAH GILLIS FROM [facility], [facility] DOES NOT COVER ANY HOME HEALTH SERVICES.
[2016-10-14] MEDS: FUROSEMIDE 20 MG TAB PO SCH (13:22)
--- NOTE | 2016-10-14 14:00 | NUR ---
PHYSICAL THERAPY CO-SIGN The Physical Therapy Progress Notes documented by Senior Software Engineer have been reviewed. Reviewed/Co-Signed by: Moon Qiu PT Documentation Done by: ZUNILDA BARTON PTA PT educated on safe use of fww with good return demo. Addendum: 10/15/16 at 0919 by Moon Qiu PT Amended: Links added.
--- NOTE | 2016-10-14 14:20 | NUR ---
PATIENT SEEN BY DR. SERRA. NO S/S OF ACUTE DISTRESS. PATIENT MADE AWARE OF DISCHARGE PLANNING.
--- NOTE | 2016-10-14 15:40 | NUR ---
DISCHARGE TEACHING GIVEN TO PATIENT. MEDICATION TEACHING REGARDING INSULIN AND DIABETES MANAGEMENT TEACHING GIVEN WITH VERBALIZED UNDERSTANDING. POST OP SHOE APPLIED TO PATIENT, PATIENT DENIES DISCOMFORT AT THIS TIME. DISCHARGE FOLLOW UP TEACHING WITH APPOINTMENTS GIVEN. PATIENT AAOX4. AMBULATES WITH ASSIST. WHEELED PATIENT TO FRONT LOBBY. PICKED UP PATIENT.
== END 2016-10-14 15:40 | disposition home or self-care (01) | DRG 314 ==
LOC: MED 08:33 → MTU 09:11
PROVIDERS: ADMIT Family Medicine; ATTEND Family Medicine
PROC: 0Y6Q0Z3 Detachment at Left 1st Toe, Low, Open Approach (ICD-10-PCS; principal; 2016-10-11 13:00)
DX: E11.69 Type 2 diabetes mellitus with other specified complication (principal); N17.0 Acute kidney failure with tubular necrosis; E43 Unspecified severe protein-calorie malnutrition; D68.59 Other primary thrombophilia; E11.40 Type 2 diabetes mellitus with diabetic neuropathy, unspecified; M86.172 Other acute osteomyelitis, left ankle and foot; E11.65 Type 2 diabetes mellitus with hyperglycemia; E11.51 Type 2 diabetes mellitus with diabetic peripheral angiopathy without gangrene; E87.1 Hypo-osmolality and hyponatremia; I48.91 Unspecified atrial fibrillation; E83.42 Hypomagnesemia; I10 Essential (primary) hypertension; Z53.29 Procedure and treatment not carried out because of patient's decision for other reasons; L03.032 Cellulitis of left toe; I70.209 Unspecified atherosclerosis of native arteries of extremities, unspecified extremity; E11.621 Type 2 diabetes mellitus with foot ulcer; E78.5 Hyperlipidemia, unspecified; F25.0 Schizoaffective disorder, bipolar type; F41.0 Panic disorder [episodic paroxysmal anxiety]; J45.909 Unspecified asthma, uncomplicated; F32.9 Major depressive disorder, single episode, unspecified; F41.9 Anxiety disorder, unspecified; Z88.1 Allergy status to other antibiotic agents; Z90.49 Acquired absence of other specified parts of digestive tract; Z71.3 Dietary counseling and surveillance; Z79.01 Long term (current) use of anticoagulants; Z79.82 Long term (current) use of aspirin; Z79.899 Other long term (current) drug therapy; Z79.4 Long term (current) use of insulin; Z83.3 Family history of diabetes mellitus; Z68.26 Body mass index [BMI] 26.0-26.9, adult
CPT/HCPCS: 36415; 71010; 73660; 80048; 80053; 80202; 80305; 81001; 82009; 82150; 82550; 82553; 82948; 83036; 83605; 83690; 83735; 83874; 83880; 84100; 84436; 84439; 84443; 84479; 84484; 85025; 85610; 85651; 85730; 86140; 87040; 87070; 87075; 87081; 87086; 87186; 87205; 93005; 93922; 93925; 94640; 96365; 97116; 97530; 99285; J0295; J1815; J1885; J2270; J2405; J2543; J2704; J3010; J3370; J3475; J3490; J7030; J7060; J7620; Q0092